=== PATIENT | female | born 1950 | race Two or more races ===

== ENCOUNTER 2019-11-25 17:40 | Outpatient (CLI) | payer MEDICAID | END 2019-11-25 17:41 | disposition home or self-care (01) | LOC: COV 17:40 | PROVIDERS: ATTEND Family Medicine | DX: Z20.828 Contact with and (suspected) exposure to other viral communicable diseases (principal) ==

== ENCOUNTER 2021-08-10 06:46 | Outpatient (CLI) | payer MEDICAID ==
--- NOTE | 2021-08-10 12:06 | Ultrasound Report ---
PROCEDURE: Abdomen Complete INDICATIONS: IRRITABLE BOWEL SYNDROME TECHNIQUE: Real-time scanning was performed of the abdominal and retroperitoneal organs, with image documentatio n. COMPARISON: None. FINDINGS: Liver: Liver is normal in size. Steatosis is present. There is a focus of increased echogenicity in the superior right lobe measuring 10 x 9 x 8 mm. Gallbladder: No stones. Wall thickness is normal measuring 1.7 mm. Biliary ducts: Intrahepatic bile ducts are non-dilated. Extrahepatic bile duct caliber measures 5 m m. Normal is 6-7 mm or less in diameter, or 10 mm or less post-cholecystectomy. Pancreas: Visualized portions of the pancreas are sonographically normal. Spleen: Spleen is normal in size and homogeneous in echotexture. Kidneys: Kidneys are normal in size and echotexture. Right kidney measures 9.9 cm long; left kidney measures 9.4 cm long. No hydronephrosis or nephrolithiasis. No solid masses. Aorta: Visualized aorta is normal in caliber at less than 3 cm. Iliacs: Proximal common iliac arteries are normal in caliber at less than 2.5 cm. IVC: Intrahepatic inferior vena cava is patent. Miscellaneous: No free abdominal fluid. IMPRESSION: Focus of increased echogenicity within the liver is present, suggestive of hemangioma Reviewed by: Ana Paula Martinez MD on 08/10/2021 12:04 PM PDT Approved by: Ana Paula Martinez MD on 08/10/2021 12:04 PM PDT Station ID: [id number]
== END 2021-08-10 06:47 | disposition home or self-care (01) ==
LOC: DI 06:46
PROVIDERS: ATTEND Internal Medicine
DX: K58.8 Other irritable bowel syndrome (principal)